=== PATIENT | female | born 1950 | race Caucasian/White ===

== ENCOUNTER → 2017-09-21 09:05 | Outpatient (CLI) | payer MEDICARE, OTHER, SELFPAY ==
--- NOTE | 2017-09-21 | DI.MG.S_ITS ---
BILATERAL DIGITAL SCREENING MAMMOGRAM 3D/2D WITH CAD: 09/21/2017 CLINICAL: Routine screening. Comparison is made to exams dated: 09/16/2016 mammogram, 09/06/2016 mammogram, and 09/04/2015 mammogram - [facility]. The tissue of both breasts is heterogeneously dense. This may lower the sensitivity of mammography. Current study was also evaluated with a Computer Aided Detection (CAD) system. No significant masses, calcifications, or other findings are seen in either breast. There has been no significant interval change. IMPRESSION: NEGATIVE There is no mammographic evidence of malignancy. A 1 year screening mammogram is recommended. This exam was interpreted at Station ID: [id number]. NOTE: For mammograms, a report in lay terms will be sent to the patient. Approximately 15% of breast malignancies will not be visualized mammographically. In the management of a palpable breast mass, a negative mammogram must not discourage biopsy of a clinically suspicious lesion. Electronically Signed By: Jin gaona/deirdre:09/21/2017 11:33:09 letter sent: Normal Exam ACR BI-RADS Category 1: Negative 3341F
== END ==
PROVIDERS: Family Provider Family Medicine; PCP Family Medicine; Visit Provider Family Medicine
DX: Z12.31 Encounter for screening mammogram for malignant neoplasm of breast (principal)
CPT/HCPCS: 77063; 77067

== ENCOUNTER → 2018-09-27 16:01 | Outpatient (CLI) | payer MEDICARE, OTHER, SELFPAY ==
--- NOTE | 2018-09-27 | DI.MG.S_ITS ---
BILATERAL DIGITAL SCREENING MAMMOGRAM 3D/2D WITH CAD: 09/27/2018 CLINICAL: Routine screening. Comparison is made to exams dated: 09/21/2017 mammogram, 09/16/2016 mammogram, and 09/06/2016 mammogram - [facility]. The tissue of both breasts is heterogeneously dense. This may lower the sensitivity of mammography. Current study was also evaluated with a Computer Aided Detection (CAD) system. No significant masses, calcifications, or other findings are seen in either breast. There has been no significant interval change. IMPRESSION: NEGATIVE There is no mammographic evidence of malignancy. A 1 year screening mammogram is recommended. This exam was interpreted at Station ID: [id number]. NOTE: For mammograms, a report in lay terms will be sent to the patient. Approximately 15% of breast malignancies will not be visualized mammographically. In the management of a palpable breast mass, a negative mammogram must not discourage biopsy of a clinically suspicious lesion. Electronically Signed By: Michelle slaughter/deirdre:09/27/2018 16:50:24 letter sent: Normal Exam ACR BI-RADS Category 1: Negative 3341F
== END ==
PROVIDERS: Family Provider Family Medicine; PCP Family Medicine; Visit Provider Family Medicine
DX: Z12.31 Encounter for screening mammogram for malignant neoplasm of breast (principal)
CPT/HCPCS: 77063; 77067

== ENCOUNTER → 2019-01-15 13:20 | Outpatient (CLI) | payer MEDICARE, OTHER, SELFPAY | PROVIDERS: PCP Family Medicine; Visit Provider Family Medicine | DX: M85.88 Other specified disorders of bone density and structure, other site (principal); Z78.0 Asymptomatic menopausal state | CPT/HCPCS: 77080 ==

== ENCOUNTER → 2019-10-31 08:16 | Outpatient (CLI) | payer MEDICARE, OTHER, SELFPAY ==
--- NOTE | 2019-10-31 08:20 | DI.MG.S_ITS ---
BILATERAL DIGITAL SCREENING MAMMOGRAM 3D/2D WITH CAD: 10/31/2019 CLINICAL: Routine screening. Comparison is made to exams dated: 09/27/2018 mammogram, 09/06/2016 mammogram, and 09/21/2017 mammogram - [facility]. The tissue of both breasts is heterogeneously dense. This may lower the sensitivity of mammography. Current study was also evaluated with a Computer Aided Detection (CAD) system. No significant masses, calcifications, or other findings are seen in either breast. There has been no significant interval change. IMPRESSION: NEGATIVE There is no mammographic evidence of malignancy. A 1 year screening mammogram is recommended. This exam was interpreted at Station ID: [id number]. NOTE: For mammograms, a report in lay terms will be sent to the patient. Approximately 15% of breast malignancies will not be visualized mammographically. In the management of a palpable breast mass, a negative mammogram must not discourage biopsy of a clinically suspicious lesion. Electronically Signed By: Michelle slaughter/deirdre:10/31/2019 09:07:12 letter sent: Normal Exam ACR BI-RADS Category 1: Negative 3341F
== END ==
PROVIDERS: PCP Family Medicine; Referring Provider Family Medicine; Visit Provider Family Medicine
DX: Z12.31 Encounter for screening mammogram for malignant neoplasm of breast (principal)
CPT/HCPCS: 77063; 77067

== ENCOUNTER → 2020-12-11 15:30 | Outpatient (CLI) | payer MEDICARE, OTHER, SELFPAY ==
--- NOTE | 2020-12-11 15:32 | DI.MG.S_ITS ---
BILATERAL DIGITAL SCREENING MAMMOGRAM 3D/2D WITH CAD: 12/11/2020 CLINICAL: Routine screening. Comparison is made to exams dated: 10/31/2019 mammogram, 09/27/2018 mammogram, and 09/21/2017 mammogram - [facility]. The tissue of both breasts is heterogeneously dense. This may lower the sensitivity of mammography. Current study was also evaluated with a Computer Aided Detection (CAD) system. No significant masses, calcifications, or other findings are seen in either breast. There has been no significant interval change. IMPRESSION: NEGATIVE There is no mammographic evidence of malignancy. A 1 year screening mammogram is recommended. This exam was interpreted at Station ID: [id number]. NOTE: For mammograms, a report in lay terms will be sent to the patient. Approximately 15% of breast malignancies will not be visualized mammographically. In the management of a palpable breast mass, a negative mammogram must not discourage biopsy of a clinically suspicious lesion. Electronically Signed By: Jin gaona/deirdre:12/11/2020 16:08:40 letter sent: Normal Exam ACR BI-RADS Category 1: Negative 3341F
== END ==
PROVIDERS: PCP Family Medicine; Referring Provider Family Medicine; Visit Provider Family Medicine
DX: Z12.31 Encounter for screening mammogram for malignant neoplasm of breast (principal)
CPT/HCPCS: 77063; 77067

== ENCOUNTER → 2021-07-06 14:25 | Outpatient (CLI) | payer MEDICARE, OTHER, SELFPAY | PROVIDERS: PCP Family Medicine; Referring Provider Family Medicine; Visit Provider Family Medicine | DX: M85.88 Other specified disorders of bone density and structure, other site (principal); Z78.0 Asymptomatic menopausal state | CPT/HCPCS: 77080 ==

== ENCOUNTER → 2021-12-23 12:47 | Outpatient (CLI) | payer MEDICARE, OTHER, SELFPAY ==
--- NOTE | 2021-12-23 | DI.MG.S_ITS ---
BILATERAL DIGITAL SCREENING MAMMOGRAM 3D/2D WITH CAD: 12/23/2021 CLINICAL: Routine screening. Family history of breast cancer. Comparison is made to exams dated: 12/11/2020 mammogram, 10/31/2019 mammogram, 09/27/2018 mammogram, and 09/21/2017 mammogram - [facility]. Both breasts are heterogeneously dense, which may obscure small masses (category c / 51-75% glandular tissue). Current study was also evaluated with a Computer Aided Detection (CAD) system. There are benign post operative findings in the right breast. No significant masses, calcifications, or other findings are seen in either breast. There has been no significant interval change. IMPRESSION: BENIGN There is no mammographic evidence of malignancy. A 1 year screening mammogram is recommended. Based on the Tyrer Cuzick model (a risk assessment model) the patient's lifetime risk is 8.1% and her 10 year risk is 5.6%. According to the ACR, ACS, and NCCN guidelines, an annual breast MRI exam along with mammogram is recommended if the patient's lifetime risk is 20% or greater. This exam was interpreted at Station ID: [id number]. NOTE: For mammograms, a report in lay terms will be sent to the patient. Approximately 15% of breast malignancies will not be visualized mammographically. In the management of a palpable breast mass, a negative mammogram must not discourage biopsy of a clinically suspicious lesion. Electronically Signed By: Timmy magaña/deirdre:12/23/2021 15:06:08 letter sent: Normal Exam ACR BI-RADS Category 2: Benign Finding(s) 3342F
== END ==
PROVIDERS: PCP Family Medicine; Referring Provider Family Medicine; Visit Provider Family Medicine
DX: Z12.31 Encounter for screening mammogram for malignant neoplasm of breast (principal); Z80.3 Family history of malignant neoplasm of breast
CPT/HCPCS: 77063; 77067

== ENCOUNTER → 2023-01-05 09:14 | Outpatient (CLI) | payer MEDICARE, OTHER, SELFPAY ==
--- NOTE | 2023-01-05 | DI.MG.S_ITS ---
BILATERAL DIGITAL SCREENING MAMMOGRAM 3D/2D WITH CAD: 01/05/2023 CLINICAL: Routine screening. Family history of breast cancer. Comparison is made to exams dated: 12/23/2021 mammogram, 12/11/2020 mammogram, and 10/31/2019 mammogram - [facility]. Both breasts are heterogeneously dense, which may obscure small masses (category c / 51-75% glandular tissue). Current study was also evaluated with a Computer Aided Detection (CAD) system. There are benign post operative findings in the right breast. No significant masses, calcifications, or other findings are seen in either breast. There has been no significant interval change. IMPRESSION: BENIGN There is no mammographic evidence of malignancy. A 1 year screening mammogram is recommended. Based on the Tyrer Cuzick model (a risk assessment model) the patient's lifetime risk is 7.7% and her 10 year risk is 5.7%. According to the ACR, ACS, and NCCN guidelines, an annual breast MRI exam along with mammogram is recommended if the patient's lifetime risk is 20% or greater. This exam was interpreted at Station ID: [id number]. NOTE: For mammograms, a report in lay terms will be sent to the patient. Approximately 15% of breast malignancies will not be visualized mammographically. In the management of a palpable breast mass, a negative mammogram must not discourage biopsy of a clinically suspicious lesion. Electronically Signed By: Don campa/deirdre:01/05/2023 17:26:53 letter sent: Normal Exam ACR BI-RADS Category 2: Benign Finding(s) 3342F
== END ==
PROVIDERS: PCP Family Medicine; Referring Provider Family Medicine; Visit Provider Family Medicine
DX: Z12.31 Encounter for screening mammogram for malignant neoplasm of breast (principal); Z80.3 Family history of malignant neoplasm of breast
CPT/HCPCS: 77063; 77067

== ENCOUNTER 2023-11-04 15:19 | Day surgery (SDC) | payer MEDICARE, OTHER, SELFPAY ==
--- NOTE | 2023-11-04 | PATH_ITS ---
[facility] Accession Number: [id number] No. of containers..01 Tissue . 01 Material submitted: . esophagus - ESOPHAGEAL BIOPSY . 01 Diagnosis: ESOPHAGUS, BIOPSY: Columnar mucosa with no diagnostic abnormality. Negative for intestinal metaplasia. Negative for dysplasia and malignancy. [facility] 11/07/2023 1109 Local . 01 Electronically signed: . Mary Kate Berger MD, Pathologist NPI- [id number] . 01 Gross description: . Received in formalin, labeled with two patient identifiers and esophageal biopsy, is a single james soft tissue fragment measuring 0.3 cm in greatest dimension. Submitted in cassette A1. ([id number]) /FRR 11/05/2023 1313 Local . 01 Pathologist provided ICD-10: R13.10 . 01 CPT . D63749 Specimen Comment: A courtesy copy of this report has been sent to [phone] Performed at: [address] [address], [place], [place] [id number] MD Jin Layton MD Phone: [phone]
[2023-11-04 15:42] VITALS: BP 139/87; PULSE 78; RESP 18; TEMP 36.3; O2SAT 96
[2023-11-04] MEDS: LACTATED RINGERS 1,000 ML 42 ML IV (15:45)
--- NOTE | 2023-11-04 15:52 | PM.HP.1 ---
History of Present Illness History of Present Illness Date Patient Seen: 11/04/23 Time Patient Seen: 15:52 Chief complaint: Esophagogastroduodenoscopy Narrative: 73-year-old woman with occasional difficulty swallowing here for upper endoscopy. She was recently started on omeprazole which has improved her symptoms. No unintentional weight loss nausea vomiting. Or abdominal pain PFSH Social History Smoking Status: Never smoker alcohol intake: current Meds Home Medications and Allergies Home Medications Medication Instructions Recorded Confirmed Type omeprazole 20 mg capsule,delayed 20 mg PO QAM 11/04/23 11/04/23 History release Allergies Allergy/AdvReac Type Severity Reaction Status Date / Time venom-honey bee Allergy Severe ANAPHALAXIS Verified 11/04/23 15:44 [BEE VENOM (HONEY BEE)] Exam Vital Signs (past 8 hours): - 11/04/23 15:42 Temperature 97.4 F L Pulse Rate 78 Respiratory Rate 18 Blood Pressure 139/87 Pulse Oximetry 96 Oxygen Delivery Method Room Air Oxygen Delivery Method Room Air Narrative Exam Narrative: General adult woman alert oriented no acute distress Chest nonlabored respiration Extremities warm well perfused Assessment & Plan Assessment and plan (1) Esophageal dysphagia: Status: Acute Assessment & Plan narrative: 73-year-old woman with a esophageal dysphagia here for diagnostic esophagogastroduodenoscopy with possible dilation. Overview of procedure discussed. Procedural risks including hemorrhage esophageal injury reviewed. She provides consent to proceed. Time-Based Coding :: [TOTAL MINUTES] spent with patient and on the chart (including review of chart, obtaining history, exam, reviewing outside data, placing orders, documenting exam and treatment plan, and counseling patient) on [DATE].
--- NOTE | 2023-11-04 15:57 | PM.OP.EGD ---
Operative Date/Time/Diagnoses Date of procedure: 11/04/23 Time of procedure: 15:58 Pre-op diagnosis: Esophageal dysphagia Post-op diagnosis: other (Hiatal hernia) Procedure & Clinicians Study performed: Esophagogastroduodenoscopy Same procedure as scheduled: Yes Indications: Esophageal dysphagia Surgeon: Onofre Mendoza Procedure Notes Procedure in detail: The history and physical was performed/updated and the patient is ASA class is 2. The procedure was discussed in detail with the patient. Potential risks complications including infection, bleeding, missed diagnosis, perforation, need for surgery, and were explained. Their questions were answered and informed consent was obtained. Patient placed in left lateral decubitus position. Time out was performed. Procedural sedation was administered by Anesthesia. A bite block was placed. the scope was inserted into the mouth and advanced through the esophagus and into the stomach. The pylorus was intubated and the duodenum was examined to the 2nd portion. The scope was then withdrawn into the stomach and was retroflexed. The stomach was decompressed and scope was withdrawn slowly through the esophagus. FINDINGS -small hiatal hernia -no esophageal stricture -no significant esophagitis biopsies taken The patient tolerated the procedure well and will be discharged when they meet criteria. Specimen(s): other (Esophagus) Impression: Hiatal hernia Post-procedure Plan for aftercare: Continue omeprazole 20 mg daily Disposition: same day surgery
[2023-11-04 16:09] VITALS: BP 123/76; PULSE 84; RESP 15; TEMP 36.3; O2SAT 94
[2023-11-04 16:15] VITALS: BP 115/74; PULSE 74; RESP 12; O2SAT 96
[2023-11-04 16:21] VITALS: BP 125/92; PULSE 73; RESP 18; O2SAT 96
[2023-11-04 16:24] VITALS: BP 134/84; PULSE 70; RESP 17; O2SAT 96
[2023-11-04 16:27] VITALS: BP 118/93; PULSE 70; RESP 16; TEMP 36.7; O2SAT 97
== END 2023-11-04 16:43 | disposition home or self-care (01) ==
PROVIDERS: PCP Family Medicine; Referring Provider Surgery; Visit Provider Surgery
PROC: 0DJ08ZZ Inspection of Upper Intestinal Tract, Via Natural or Artificial Opening Endoscopic (ICD-10-PCS; CPT 43235; principal; 2023-11-04 15:15)
DX: R13.10 Dysphagia, unspecified (principal); K44.9 Diaphragmatic hernia without obstruction or gangrene
CPT/HCPCS: 43239; J2704

== ENCOUNTER → 2024-01-30 12:52 | Outpatient (CLI) | payer MEDICARE, OTHER, SELFPAY ==
--- NOTE | 2024-01-30 12:53 | DI.MG.S_ITS ---
BILATERAL DIGITAL SCREENING MAMMOGRAM 3D/2D WITH CAD: 01/30/2024 CLINICAL: Routine screening. Family history of breast cancer. Comparison is made to exams dated: 01/05/2023 mammogram, 12/23/2021 mammogram, and 12/11/2020 mammogram - [facility]. The breasts are heterogeneously dense, which may obscure small masses (category c / 51-75% glandular tissue). Current study was also evaluated with a Computer Aided Detection (CAD) system. There are benign post operative findings in the right breast. No significant masses, calcifications, or other findings are seen in either breast. There has been no significant interval change. IMPRESSION: BENIGN There is no mammographic evidence of malignancy. A 1 year screening mammogram is recommended. Based on the Tyrer Cuzick model (a risk assessment model) the patient's lifetime risk is 7.2% and her 10 year risk is 5.9%. According to the ACR, ACS, and NCCN guidelines, an annual breast MRI exam along with mammogram is recommended if the patient's lifetime risk is 20% or greater. This exam was interpreted at Station ID: [id number]. NOTE: For mammograms, a report in lay terms will be sent to the patient. Approximately 15% of breast malignancies will not be visualized mammographically. In the management of a palpable breast mass, a negative mammogram must not discourage biopsy of a clinically suspicious lesion. Electronically Signed By: Bebo miller/deirdre:01/30/2024 15:28:43 letter sent: Normal Exam ACR BI-RADS Category 2: Benign
== END ==
LOC: MAMMO 12:53
PROVIDERS: PCP Family Medicine; Referring Provider Family Medicine; Visit Provider Family Medicine
DX: Z12.31 Encounter for screening mammogram for malignant neoplasm of breast (principal); Z80.3 Family history of malignant neoplasm of breast; R92.333 Mammographic heterogeneous density, bilateral breasts
CPT/HCPCS: 77063; 77067

== ENCOUNTER 2024-02-14 16:48 | Emergency (ER) | payer MEDICARE, OTHER, SELFPAY ==
[2024-02-14 17:26] VITALS: BP 128/67; PULSE 77; RESP 16; TEMP 36.5; O2SAT 97; BMI 23.9
--- NOTE | 2024-02-14 21:26 | ED.WOUNDLAC ---
HPI - Wound/Laceration General Chief Complaint: Wound/Laceration Stated Complaint: laceration on forehead Time Seen by Provider: 02/14/24 20:16 Source: patient Mode of arrival: Ambulatory History of Present Illness HPI narrative: 73-year-old female presents for evaluation of laceration on her forehead. She states that she was getting into a car when the door clipped her in the forehead. Denies loss of consciousness, denies use of blood thinners. Reports being up-to-date on her tetanus shot. Related Data Home Medications Medication Instructions Recorded Confirmed omeprazole 20 mg capsule,delayed 20 mg PO QAM 11/04/23 11/04/23 release Allergies Allergy/AdvReac Type Severity Reaction Status Date / Time venom-honey bee Allergy Severe ANAPHALAXIS Verified 11/04/23 15:44 [BEE VENOM (HONEY BEE)] Patient History Social History Smoking Status: Never smoker alcohol intake: current Smoking Status: Never smoker alcohol intake frequency: a few times a week Substance Use Type: does not use Exam Initial Vital Signs Initial Vital Signs: Vital Signs Temperature 97.7 F 02/14/24 17:26 Pulse Rate 77 02/14/24 17:26 Respiratory Rate 16 02/14/24 17:26 Blood Pressure 128/67 02/14/24 17:26 Pulse Oximetry 97 02/14/24 17:26 Oxygen Delivery Method Room Air 02/14/24 17:26 Const: Awake, alert, no acute distress, nontoxic appearing HEENT: PERRL, EOMI, no deformities Skin: Warm, Dry, 1.5cm vertical laceration center forehead Neuro: AO x3, CN II-XII grossly intact, moves all extremities Procedures Laceration Repair Laceration 1: Site: face Size (cm): 1.5 Description: linear Depth: simple, single layer Skin layer closed with: dermabond Course Vital Signs Vital signs: Vital Signs - 8 hr 02/14/24 17:26 Temperature 97.7 F Pulse Rate 77 Respiratory Rate 16 Blood Pressure 128/67 Pulse Oximetry 97 Oxygen Delivery Method Room Air MDM - Wound/Laceration MDM Narrative Medical decision making narrative: Minimal laceration frontal scalp after being accidentally struck by her car door. Wound repaired with Dermabond and Steri-Strips per procedure note. Discharge Plan Departure Patient Disposition: Home Clinical Impression: Forehead laceration Instructions: DI for Minor Laceration Activity Restrictions/Additional Instructions: The Steri-Strips and Dermabond (skin glue) we will fall off naturally in about 7-10 days. While the glue and strips are present do not scrub the area. If you get the area wet just pat it dry eyes. Wear sunscreen daily to prevent scarring. Prescriptions: No Action omeprazole 20 mg capsule,delayed release(DR/EC) 20 mg PO QAM Referrals: Devin Rodriguez MD [Primary Care Provider] - Stand Alone Forms: Patient Portal/API/Survey
[2024-02-14 21:37] VITALS: BP 144/70; PULSE 68; RESP 16; O2SAT 97
== END 2024-02-14 21:38 | disposition home or self-care (01) ==
PROVIDERS: Emergency Provider Emergency Medicine; PCP Family Medicine
DX: S01.81XA Laceration without foreign body of other part of head, initial encounter (principal); W22.8XXA Striking against or struck by other objects, initial encounter
CPT/HCPCS: 12011; 99281; 99282

== ENCOUNTER 2024-03-10 21:17 | Emergency (ER) | payer MEDICARE, OTHER, SELFPAY ==
[2024-03-10] VITALS (9 sets, daily range): BP systolic 135–175; BP diastolic 83–92; PULSE 73–92; RESP 16–20; TEMP 36.4; O2SAT 94–99; BMI 24.0
--- NOTE | 2024-03-10 21:23 | ED.EXTPRO ---
HPI - Extremity Problem General Chief complaint: Extremity Problem,Nontraumatic Stated complaint: poss blood clot in leg Time Seen by Provider: 03/10/24 21:23 History of Present Illness HPI Narrative: 73-year-old female no significant past medical history presents to the ED for evaluation of right leg pain swelling ongoing persistent for the past week, she states that she does not remember any specific trauma states it was a total of 10 achy nothing making it better or worse, she states that 1 of her friends was recently diagnosed with a DVT in his worried that she is having that as well therefore decided come into the ED for further evaluation treatment. Not on any blood thinners no recent travel no known sick contacts, not complaining of any other symptoms such as headache visual disturbances chest pain shortness breath fever chills nausea vomiting abdominal pain or any other GI/ symptoms. She is able to stand bear weight ambulate unassisted here in the emergency department Related Data Home Medications Medication Instructions Recorded Confirmed omeprazole 20 mg capsule,delayed 20 mg PO QAM 11/04/23 11/04/23 release Allergies Allergy/AdvReac Type Severity Reaction Status Date / Time venom-honey bee Allergy Severe ANAPHALAXIS Verified 11/04/23 15:44 [BEE VENOM (HONEY BEE)] Review of Systems Review of Systems Narrative: General: Denies fever, chills, weight loss HEENT: Denies headache, eye drainage, eye irritation, head trauma, sore throat, voice change Cardiovascular: Denies any chest pain, palpitations, shortness of breath, tachycardia Respiratory: Denies any shortness of breath, cough, wheeze, stridor GI/: Denies any abdominal pain, nausea, vomiting, diarrhea, bright red blood per rectum, melanotic stools, urinary frequency, urinary retention, dysuria, hematuria MSK: Positive redness and swelling to the right inner leg Skin: Denies any rashes, lesions, discoloration Neuro: Denies any headache, lightheadedness, dizziness, fainting, weakness Psych: Denies SI/HI Patient History Social History Smoking Status: Never smoker alcohol intake: current Smoking Status: Never smoker alcohol intake frequency: a few times a week Exam Narrative Exam Narrative: General: Cooperative, comfortable, well-developed, not in acute distress HEENT: Normocephalic, atraumatic, PERRLA, normal sclera, eyelids normal, Neck: Active full range of motion, atraumatic Chest: Normal to inspection, negative crepitus, no overlying erythema ecchymosis Respiratory: Normal respiratory effort, not in acute respiratory distress, clear to auscultation bilaterally negative cough, wheeze, tachypnea, rhonchi, rales Cardiology: Regular rate rhythm negative gallop, murmur, rubs GI/: Normal to inspection, soft, nonrigid, no tenderness to palpation, exam deferred MSK: Full range of active range of motion of all 4 extremities, atraumatic Skin: slight erythema to the inner thigh of the right leg, neurovascularly intact no crepitus no tenderness to palpation, patient able to stand bear weight ambulate unassisted here in the emergency department Neuro: Alert awake oriented x3, moves all 4 extremities spontaneously, cranial nerves intact, able to answer all questions appropriately follows commands appropriately Psych: Cooperative, negative suicidal or homicidal ideations Initial Vital Signs Initial Vital Signs: Vital Signs Pulse Oximetry 94 03/10/24 21:21 Course Orders Ordered: ED Orders 03/10/24 21:24 [facility] venous low extrem rt Stat 03/10/24 22:40 BMP [Basic Metabolic Panel] Stat CBC Auto Diff [Complete Blood Count AUTO DIFF] Stat Vital Signs Vital signs: Vital Signs - 8 hr 03/10/24 21:21 03/10/24 21:23 03/10/24 21:23 Temperature Pulse Rate 92 H Respiratory Rate Blood Pressure 175/92 H Pulse Oximetry 94 98 Oxygen Delivery Method 03/10/24 21:25 03/10/24 21:30 03/10/24 21:30 Temperature 97.6 F Pulse Rate 83 84 Respiratory Rate 16 Blood Pressure 175/92 H 162/91 H Pulse Oximetry 99 96 Oxygen Delivery Method Room Air 03/10/24 22:00 03/10/24 22:30 03/10/24 22:37 Temperature Pulse Rate 73 78 Respiratory Rate 18 Blood Pressure 157/83 H Pulse Oximetry 95 95 Oxygen Delivery Method 03/10/24 22:37 Temperature Pulse Rate 80 Respiratory Rate 20 Blood Pressure Pulse Oximetry 95 Oxygen Delivery Method Room Air MDM - Extremity (Nontraumatic) Differential Diagnosis Differential diagnosis: Likely other (Cellulitis, thrombophlebitis, DVT) Lab Data 03/10/24 22:40 03/10/24 22:40 Labs: Lab Results 03/10/24 Range/Units 22:40 WBC 6.3 (4.5-11.0) X10^3/uL RBC 4.26 (4.0-5.2) X10^6/uL Hgb 10.8 L (12.0-16.0) g/dL Hct 34.0 L (36-46) % MCV 79.9 L (80-100) fL MCH 25.4 L (26-34) PG MCHC 31.7 (30-36) % RDW 15.7 H (11.6-14.8) % Plt Count 342 (150-400) X10^3/uL Neut % (Auto) 48.9 L (50-75) % Lymph % (Auto) 34.2 (25-40) % Pratt % (Auto) 9.9 (3-14) % Eos % (Auto) 6.2 H (2-4) % Baso % (Auto) 0.8 (0-2) % Neut # (Auto) 3100 (6528-8425) /uL Lymph # (Auto) 2200 (8031-3853) /uL Pratt # (Auto) 600 (0-900) /uL Eos # (Auto) 400 (0-450) /uL Baso # (Auto) 100 (0-100) /uL Sodium 134 L (137-145) mmol/L Potassium 3.7 (3.4-5.1) mmol/L Chloride 104 (98-107) mmol/L Carbon Dioxide 27 (22-32) mmol/L BUN 17 (7-17) mg/dL Creatinine 0.92 (0.52-1.04) mg/dL Estimated GFR > 60 (>60) mL/min BUN/Creatinine Ratio 18.5 (6-22) Glucose 110 (80-110) mg/dL Calcium 9.1 (8.4-10.2) mg/dL Imaging Data US - DVT: Radiologist's Impression: [address] [address] Ultrasound Report Signed Patient: Catia Arriaga V MR#: [id number] : 1950 Acct:[id number] Age/Sex: 73 / F Date of Service: 03/10/24 Loc: ED Accession Number: [id number] Procedure: US periph venous low extrem rt Ordering Provider: Kwadwo Genao D.O. PROCEDURE: US PERIPH VENOUS LOW EXTREM RT INDICATIONS: Swelling and pain TECHNIQUE: Real-time imaging, as well as color and pulse Doppler interrogation, were performed of the lower extremity deep veins from the inguinal ligament to the popliteal fossa, with documentation of the visualized calf veins. COMPARISON: None. FINDINGS: The common femoral, femoral, popliteal, and the visualized calf veins are normally compressible, and free of intraluminal thrombus. Color and pulse Doppler demonstrate normal phasic intraluminal flow. There is normal augmentation response to distal compression maneuver. There is occlusive thrombus within the greater the greater saphenous vein, beginning 5.6 cm from the junction and extending through proximal calf. IMPRESSION: No findings of lower extremity deep venous thrombosis. Extensive superficial venous thrombosis seen greater vein. MDM Narrative Medical decision making narrative: 73-year-old female presenting for nontraumatic erythema pain to the inner right thigh proximally 1 week ago, states that she is worried she might have a DVT. Patient had ultrasound performed here in the emergency department did show superficial venous thrombus of the greater saphenous vein beginning 5.6 cm from the junction extending through the proximal calf, given the length and extensive component of the superficial vein patient at intermediate risk for VTE therefore will treat prophylactically with anticoagulation with Eliquis here. Patient lab work without any acute findings 1st dose of Eliquis here patient is sent home prescription and instructed to follow up with primary care in outpatient setting. Patient was given strict return precautions he verbalized understanding of this and agrees to being discharged home with outpatient follow up Discharge Plan Departure Patient Disposition: Home Activity Restrictions/Additional Instructions: Please go to the following link to get a free/discounted course of eliquis: [email or web address] Please read the discharge instructions sheet carefully and bring all papers to all doctor follow-up visits, as it may contain information that your doctor may want to see. Disease processes change and evolve, if your symptoms worsen or if you develop any new symptoms that are concerning to you please return for evaluation. Your evaluation today does not show any evidence of any life-threatening/serious illnesses requiring admission to the hospital or surgery. Please follow-up with your doctor for re-evaluation in approximately 1 day. Seek immediate medical attention for any worrisome symptoms. *If you do not have a primary care provider please contact the [facility] Resource line at [phone]. They will ask some questions about your medical history and help get you set up with a doctor in the community. Prescriptions: No Action omeprazole 20 mg capsule,delayed release(DR/EC) 20 mg PO QAM Referrals: Devin Rodriguez MD [Primary Care Provider] - Stand Alone Forms: Patient Portal/API/Survey
--- NOTE | 2024-03-10 21:24 | DI.US.S_ITS ---
PROCEDURE: US PERIPH VENOUS LOW EXTREM RT INDICATIONS: Swelling and pain TECHNIQUE: Real-time imaging, as well as color and pulse Doppler interrogation, were performed of the lower extremity deep veins from the inguinal ligament to the popliteal fossa, with documentation of the visualized calf veins. COMPARISON: None. FINDINGS: The common femoral, femoral, popliteal, and the visualized calf veins are normally compressible, and free of intraluminal thrombus. Color and pulse Doppler demonstrate normal phasic intraluminal flow. There is normal augmentation response to distal compression maneuver. There is occlusive thrombus within the greater the greater saphenous vein, beginning 5.6 cm from the junction and extending through proximal calf. IMPRESSION: No findings of lower extremity deep venous thrombosis. Extensive superficial venous thrombosis seen greater vein. Note: Concordant preliminary findings given by the auto brake technician upon the completion of the examination to Dr. Genao at 10:30 p.m. on March 10, 2024. Dictated by: Brandon Valdes M.D. on 03/10/2024 at 22:03 Approved by: Brandon Valdes M.D. on 03/10/2024 at 22:04
[2024-03-10 22:49] LABS: Add Manual Diff / Slide Review NO; Basophils Absolute Auto 100 /uL (0-100); Basophils Percent Auto 0.8 % (0-2); Eosinophils Absolute Auto 400 /uL (0-450); Eosinophils Percent Auto 6.2 % (2-4); Hemoglobin 10.8 g/dL (12.0-16.0); Lymphocytes Absolute Auto 2200 /uL (1100-4500); Lymphocytes Percent Auto 34.2 % (25-40); Mean Corpuscular HGB Conc 31.7 % (30-36); Mean Corpuscular Hemoglobin 25.4 PG (26-34); Mean Corpuscular Volume 79.9 fL (80-100); Monocytes Absolute Auto 600 /uL (0-900); Monocytes Percent Auto 9.9 % (3-14); Neutrophils Absolute Auto 3100 /uL (1500-7000); Neutrophils Percent Auto 48.9 % (50-75); Platelet Count 342 X10^3/uL (150-400); Red Blood Cell Count 4.26 X10^6/uL (4.0-5.2); Red Cell Distribution Width 15.7 % (11.6-14.8); White Blood Cell Count 6.3 X10^3/uL (4.5-11.0)
[2024-03-10 22:58] LABS: BUN Creatinine Ratio 18.5 (6-22); Blood Urea Nitrogen 17 mg/dL (7-17); Calcium 9.1 mg/dL (8.4-10.2); Carbon Dioxide 27 mmol/L (22-32); Chloride 104 mmol/L (98-107); Estimated Glomerular Filt Rate > 60 mL/min (>60); Glucose 110 mg/dL (80-110); HEMOLYSIS < 15 (0-50); Potassium 3.7 mmol/L (3.4-5.1); Sodium 134 mmol/L (137-145)
[2024-03-10] MEDS: APIXABAN 5 MG TABLET 10 MG PO (23:16)
== END 2024-03-10 23:42 | disposition home or self-care (01) ==
PROVIDERS: Emergency Provider Student in an Organized Health Care Education/Training Program; PCP Family Medicine
DX: I82.811 Embolism and thrombosis of superficial veins of right lower extremity (principal)
CPT/HCPCS: 36415; 80048; 85025; 93971; 99283; 99284

== ENCOUNTER → 2024-06-05 11:46 | Outpatient (CLI) | payer MEDICARE, OTHER, SELFPAY ==
--- NOTE | 2024-06-05 11:49 | DI.US.S_ITS ---
PROCEDURE: US PERIP VENOUS LOW EXTREM RT INDICATIONS: thrombosis of right saphenous vein TECHNIQUE: Real-time imaging, as well as color and pulse Doppler interrogation, were performed of the lower extremity deep veins from the inguinal ligament to the popliteal fossa, with documentation of the visualized calf veins. COMPARISON: [facility], [facility] VENOUS LOW EXTREM RT, 03/10/2024, 22:07. FINDINGS: The common femoral, femoral, popliteal, and the visualized calf veins are normally compressible, and free of intraluminal thrombus. Color and pulse Doppler demonstrate normal phasic intraluminal flow. There is normal augmentation response to distal compression maneuver. Occlusion of the greater saphenous vein distally at the medial knee. IMPRESSION: No findings of lower extremity deep venous thrombosis. Thrombosis of the greater saphenous vein distally at the medial knee, decreased in extent compared to prior exam. Dictated by: Vance Del Toro M.D. on 06/05/2024 at 12:53 Approved by: Vance Del Toro M.D. on 06/05/2024 at 12:57
== END ==
PROVIDERS: PCP Family Medicine; Referring Provider Family Medicine; Visit Provider Family Medicine
DX: I82.811 Embolism and thrombosis of superficial veins of right lower extremity (principal)
CPT/HCPCS: 93971

== ENCOUNTER → 2024-09-18 14:34 | Outpatient (CLI) | payer MEDICARE, OTHER, SELFPAY ==
--- NOTE | 2024-09-18 14:37 | DI.RAD.S_ITS ---
PROCEDURE: XR CHEST 2V INDICATIONS: CHRONIC COUGH TECHNIQUE: 2 views of the chest were acquired. COMPARISON: None. FINDINGS: Heart, mediastinum and pulmonary vascular: Heart is normal in size and configuration. Mediastinum is unremarkable. Pulmonary vascular is normal. Lungs: Lung volumes are mildly elevated and there is mild wall thickening the central bronchi. No infiltrates Pleural spaces: Normal-no effusions or pneumothorax. IMPRESSION: Findings compatible with bronchitis or asthma Dictated by: Tai Kay M.D. on 09/19/2024 at 12:08 Approved by: Tai Kay M.D. on 09/19/2024 at 12:08
== END ==
PROVIDERS: PCP Family Medicine; Referring Provider Family Medicine; Visit Provider Family Medicine
DX: R05.3 Chronic cough (principal)
CPT/HCPCS: 71046

== ENCOUNTER → 2024-10-11 13:18 | Outpatient (CLI) | payer MEDICARE, OTHER, SELFPAY | PROVIDERS: PCP Family Medicine; Referring Provider Family Medicine; Visit Provider Family Medicine | DX: R05.3 Chronic cough (principal); R94.2 Abnormal results of pulmonary function studies | CPT/HCPCS: 36415; 82565; 94060; 94726; 94729 ==

== ENCOUNTER → 2024-10-11 13:30 | Outpatient (CLI) | payer MEDICARE, OTHER, SELFPAY ==
[2024-10-11 15:22] LABS: Estimated Glomerular Filt Rate > 60 mL/min (>60)
== END ==
PROVIDERS: PCP Family Medicine; Referring Provider Family Medicine; Visit Provider Family Medicine
DX: R13.10 Dysphagia, unspecified (principal)
CPT/HCPCS: 36415; 82565

== ENCOUNTER → 2024-10-12 09:21 | Outpatient (CLI) | payer MEDICARE, OTHER, SELFPAY ==
--- NOTE | 2024-10-12 09:23 | DI.CT.S_ITS ---
PROCEDURE: CT CHEST W CON INDICATIONS: CHRONIC COUGH TECHNIQUE: After the administration of intravenous contrast, 5 mm thick sections acquired from the pulmonary apices to the posterior costophrenic angles. 1 mm axial lung, 5 mm thick coronal and sagittal reformats and 7 mm axial MIP were acquired. For radiation dose reduction, the following was used: automated exposure control, adjustment of mA and/or kV according to patient size. COMPARISON: None. FINDINGS: Image quality: Diagnostic Lungs and pleura: There is a calcified nodule in the azygos esophageal recess measuring 1.1 cm. No fibrotic changes in the lungs. No pleural effusions. There is mild bronchial wall thickening. Mediastinum, heart, and esophagus: Trace hiatal hernia. Normal heart size. No enlarged lymph nodes by size criteria. Some lymph nodes appear calcified, most notably in the subcarinal region. Unremarkable esophagus. Chest wall and thyroid: Unremarkable Upper abdomen: No gross abnormality on these images of the partially visualized upper abdomen Bones: There are degenerative changes. No aggressive appearing osseous abnormality. IMPRESSION: No significant pulmonary fibrosis, airspace disease, or pleural effusion. Mild bronchial wall thickening may represent bronchitis. Incidentally noted 1.1 cm calcified nodule in the azygos esophageal recess, probably a benign granuloma. Granulomatous calcified lymph nodes are also suspected in the mediastinum and right hilum. Follow-up is reasonable to ensure stability if the patient has risk factors or another history of malignancy. Trace hiatal hernia. Other findings above. Dictated by: Bebo Reed M.D. on 10/12/2024 at 16:23 Approved by: Bebo Reed M.D. on 10/12/2024 at 16:27
--- NOTE | 2024-10-12 09:23 | DI.CT.S_ITS ---
PROCEDURE: CT SINUS SCREEN WO CON INDICATIONS: CHRONIC COUGH TECHNIQUE: Noncontrast 3.0 mm axial images acquired from the frontal sinuses to the mid- sella, with coronal and sagittal reformats. For radiation dose reduction, the following was used: automated exposure control, adjustment of mA and/or kV according to patient size. COMPARISON: None. FINDINGS: Image quality: Excellent. Maxillary Sinuses: No bony remodeling or destruction. Moderate mucosal thickening inferiorly, bilaterally.. Ethmoid Air Cells: No bony remodeling or destruction. Sinuses are clear. Sphenoid Sinuses: No bony remodeling or destruction. Mild mucosal thickening inferiorly. Frontal Sinuses: No bony remodeling or destruction. Sinuses are clear. Ostiomeatal Complexes: Ostiomeatal complexes are opacified on the left and partially opacified on the right. Bilateral Nahomi cells. Miscellaneous: Visualized intra-orbital contents are normal. No dalton bullosa or paradoxical turbinate curvature. Mild leftward nasal septal deviation. IMPRESSION: Moderate maxillary sinus mucosal thickening inferiorly. Mild sphenoid sinus mucosal thickening. Dictated by: Vance Del Toro M.D. on 10/14/2024 at 0:55 Approved by: Vance Del Toro M.D. on 10/14/2024 at 0:57
== END ==
LOC: CT 09:22
PROVIDERS: PCP Family Medicine; Referring Provider Family Medicine; Visit Provider Family Medicine
DX: J32.8 Other chronic sinusitis (principal); R13.10 Dysphagia, unspecified; J34.2 Deviated nasal septum; R05.3 Chronic cough; K22.9 Disease of esophagus, unspecified
CPT/HCPCS: 70486; 71260; Q9967